=== PATIENT | female | born 1940 | race Caucasian/White ===

== ENCOUNTER → 2016-08-22 | Outpatient (CLI) | payer MEDICARE, BC ==
[~2016-08-22] MED LIST: ASPIRIN E.C. 8181 MG PO; CALCIUM 1200 W/1 SGL PO; LEVOTHYROXIN0.025 MG PO; LISINOPRIL10 MG PO; MULTIVITAMIN FO1 CAP PO; SIMVASTATIN40 MG PO
== END ==
LOC: MC.RAD 13:34
DX: Z12.31 Encounter for screening mammogram for malignant neoplasm of breast (principal)

== ENCOUNTER → 2017-11-08 | Outpatient (CLI) | payer MEDICARE, BC | LOC: MC.RAD 10-02 11:00 | DX: Z12.31 Encounter for screening mammogram for malignant neoplasm of breast (principal) ==

== ENCOUNTER → 2018-11-09 | Outpatient (CLI) | payer MEDICARE, BC | LOC: MC.RAD 10:45 | DX: Z12.31 Encounter for screening mammogram for malignant neoplasm of breast (principal) ==

== ENCOUNTER → 2019-11-25 | Outpatient (CLI) | payer MEDICARE, BC | LOC: MC.RAD 11:42 | DX: Z12.31 Encounter for screening mammogram for malignant neoplasm of breast (principal) ==

== ENCOUNTER → 2021-10-05 | Outpatient (CLI) | payer MEDICARE, BC | LOC: MC.RAD 10:55 | DX: Z12.31 Encounter for screening mammogram for malignant neoplasm of breast (principal) ==

== ENCOUNTER → 2023-12-14 | Outpatient (CLI) | payer MEDICARE, BC ==
[~2023-12-14] MED LIST changes: +Iohexol 300 - 10 ML VIAL IV ONE; +Triamcinolone 40 MG/ML 1 ML VIAL IJ ONE
== END ==
LOC: COL.RAD 12:49
DX: M25.551 Pain in right hip (principal)
CPT/HCPCS: J0665; J3301; Q9967